=== PATIENT | female | born 1990 | race Caucasian/White ===

== ENCOUNTER 2022-10-17 10:56 | Day surgery (SDC) | payer BC ==
[2022-10-17] MEDS ORDERED: hydrALAZINE 20 MG/ML VIAL SLOW IVP PRN (12:15)
[2022-10-17 12:48] LABS: Creatinine, Urine 30.76 mg/dL (47-110); Protein, Urine Random Quant Less than 10 mg/dL (1-14)
[2022-10-17 13:12] LABS: #Basophils 0.1 10x3/uL (0.0-0.2); #Eosinphils 0.1 10x3/uL (0.0-0.5); #Monocytes 0.7 10x3/uL (0.0-1.1); #Neutrophils 7.6 10x3/uL (1.5-8.4); %Basophils 0.5 % (0.0-2.0); %Eosinophils 0.5 % (0.0-6.0); %Lymphocytes 18.8 % (18.0-47.0); %Neutrophils 72.6 % (40.0-75.0); Mean Corpuscular HGB CONC 34.9 g/dL (32.0-36.0); Mean Platelet Volume 10.6 fl (7.4-10.4); Platelet Count 209 10x3/uL (150-450); RBC Distribution Width 12.3 % (11.5-14.5); Red Blood Cell (RBC) Count 4.19 10x6/uL (3.90-5.03); White Blood Cell (WBC) Count 10.4 10x3/uL (3.5-10.5)
[2022-10-17 13:27] LABS: ALT (SGPT) 10 U/L (8-55); AST (SGOT) 15 U/L (5-34); Albumin 3.3 g/dL (3.5-5.0); Alkaline Phosphatase 67 U/L (40-110); Anion Gap 14 mmol/L (10-20); BUN (Urea Nitrogen) 8 mg/dL (7.0-18.7); Bilirubin, Total 0.4 mg/dL (0.2-1.2); Calc. Creatinine Clearance 0 mL/min (70-130); Calcium 9.5 mg/dL (7.8-10.44); Carbon Dioxide 19 mmol/L (22-29); Chloride 108 mmol/L (98-107); Estimated GFR 120; Globulin 2.9 g/dL (2.4-3.5); Glucose 72 mg/dL (70-105); Potassium 3.8 mmol/L (3.5-5.1); Protein, Total 6.2 g/dL (6.0-8.3); Sodium 137 mmol/L (136-145)
== END 2022-10-17 14:50 | disposition home or self-care (01) ==
LOC: CSHLD/OP 10:56
PROVIDERS: ATTEND Student in an Organized Health Care Education/Training Program
DX: O47.03 False labor before 37 completed weeks of gestation, third trimester (principal); O13.3 Gestational [pregnancy-induced] hypertension without significant proteinuria, third trimester; Z3A.35 35 weeks gestation of pregnancy
CPT/HCPCS: 36415; 80053; 82570; 84156; 85025; 87480; 87510; 87660; 99285

== ENCOUNTER 2022-11-12 00:32 | Inpatient (IN) | payer BC ==
[2022-11-12 00:53] VITALS: BMI 30.4
[2022-11-12] MEDS ORDERED: hydrALAZINE 20 MG/ML VIAL SLOW IVP PRN ×3 (01:18→06:15)
[2022-11-12] MEDS ORDERED: Lidocaine 1% (PF) 30 ML VIAL SC PRN (01:54)
[2022-11-12] MEDS ORDERED: Acetaminophen 500 MG TAB PO PRN (01:54)
[2022-11-12] MEDS ORDERED: Butorphanol Tartrate 1 MG/ML VIAL SLOW IVP PRN (01:54)
[2022-11-12] MEDS ORDERED: Carboprost 250 MCG/ML AMP IM PRN (01:54)
[2022-11-12] MEDS ORDERED: Promethazine HCl 25 MG/ML VIAL IM PRN ×3 (01:54→06:15)
[2022-11-12] MEDS ORDERED: Tranexamic Acid 1,000 MG in Sodium Chloride 0.9% 250 ML 250 ML IVPB PRN (01:54)
[2022-11-12] MEDS ORDERED: Ondansetron PF 4 MG/2 ML Vial IVP PRN ×3 (01:54→06:15)
[2022-11-12] MEDS ORDERED: Misoprostol 200 MCG TAB PR PRN (01:54)
[2022-11-12] MEDS ORDERED: Ibuprofen 800 MG TAB PO PRN (01:54)
[2022-11-12] MEDS ORDERED: NS w/ Oxytocin 30 units 500 ML IV SCH ×3 (02:00→06:15)
[2022-11-12] MEDS ORDERED: Lactated Ringer's 1,000 ML IV SCH (02:00)
[2022-11-12] MEDS ORDERED: Penicillin G Potassium 5 MILL.UNITS in Sodium Chloride 0.9% 100 ML IVPB SCH (02:00)
[2022-11-12] MEDS ORDERED: Penicillin G Potassium 5 MILL.UNITS VIAL ONE (02:03)
[2022-11-12 02:04] LABS: #Basophils 0.1 10x3/uL (0.0-0.2); #Eosinphils 0.3 10x3/uL (0.0-0.5); #Neutrophils 5.9 10x3/uL (1.5-8.4); %Basophils 0.6 % (0.0-2.0); %Eosinophils 2.7 % (0.0-6.0); %Lymphocytes 24.9 % (18.0-47.0); %Monocytes 10.3 % (0.0-10.0); %Neutrophils 60.7 % (40.0-75.0); Hemoglobin 13.2 g/dL (12.0-15.5); Mean Corpuscular HGB CONC 34.7 g/dL (32.0-36.0); Mean Corpuscular Hemoglobin 30.2 pg (27.0-33.0); Mean Platelet Volume 10.8 fl (7.4-10.4); Platelet Count 195 10x3/uL (150-450); RBC Distribution Width 12.3 % (11.5-14.5); Red Blood Cell (RBC) Count 4.37 10x6/uL (3.90-5.03); White Blood Cell (WBC) Count 9.8 10x3/uL (3.5-10.5)
[2022-11-12 02:08] LABS: ALT (SGPT) 14 U/L (8-55); AST (SGOT) 19 U/L (5-34); Albumin 3.3 g/dL (3.5-5.0); Alkaline Phosphatase 83 U/L (40-110); Anion Gap 14 mmol/L (10-20); BUN (Urea Nitrogen) 11 mg/dL (7.0-18.7); Bilirubin, Total 0.3 mg/dL (0.2-1.2); Calc. Creatinine Clearance 144 mL/min (70-130); Calcium 8.9 mg/dL (7.8-10.44); Carbon Dioxide 20 mmol/L (22-29); Chloride 106 mmol/L (98-107); Estimated GFR 110; Globulin 2.8 g/dL (2.4-3.5); Glucose 81 mg/dL (70-105); Potassium 3.5 mmol/L (3.5-5.1); Protein, Total 6.1 g/dL (6.0-8.3); Sodium 136 mmol/L (136-145)
[2022-11-12 02:39] LABS: HBSAg Index 0.14 S/CO (0-0.99); Hep B Surf Ag Non-Reactive S/CO (NonReactive); SARS-CoV-2 NAA Rapid Test Not Detected (NotDetected)
[2022-11-12 02:40] LABS: Syphilis Antibody Nonreactive (Nonreactive); Syphilis Antibody Index 0.03 S/CO (<1.00 Non-Reactive)
[2022-11-12] MEDS ORDERED: Naloxone HCl 0.4 mg/ml Vial IVP PRN ×2 (02:42)
[2022-11-12] MEDS ORDERED: Moisturizing Cream (Eucerin) 113 GM JAR TOP PRN (02:42)
[2022-11-12] MEDS ORDERED: diphenhydrAMINE 50 MG/ML VIAL IVP PRN (02:42)
[2022-11-12] MEDS ORDERED: ePHEDrine Sulfate 50 MG/10 ML VIAL SLOW IVP PRN (02:42)
[2022-11-12] MEDS ORDERED: Communication Order-Pharmacy FS SCH (02:45)
[2022-11-12] MEDS ORDERED: Fentanyl 2 mcg/Bupivacaine 0.1% Cassette 100 ML EPIDURAL SCH (02:45)
[2022-11-12] MEDS ORDERED: Lactated Ringer's 500 ML IV PRN (02:48)
[2022-11-12] MEDS ORDERED: Fentanyl 2 mcg/Bup 0.1% Cadd 100 ML ONE (02:58)
[2022-11-12 03:39] LABS: Creatinine, Urine 93.04 mg/dL (47-110)
[2022-11-12] MEDS ORDERED: Penicillin G 2.5 MILL.units 2.5 MILL.UNITS in Premix Bag 1 BAG IVPB SCH (06:00)
[2022-11-12] MEDS ORDERED: Boostrix 0.5 ML (Tdap) VIAL (>/=7 yrs of age) IM ONE (06:15)
[2022-11-12] MEDS ORDERED: Misoprostol 200 MCG TAB VAG PRN (06:15)
[2022-11-12] MEDS ORDERED: diphenhydrAMINE 25 MG CAP PO PRN (06:15)
[2022-11-12] MEDS ORDERED: Bisacodyl 10 MG SUPP PR PRN (06:15)
[2022-11-12] MEDS ORDERED: Milk Of Magnesia 30 ML UDCUP PO PRN (06:15)
[2022-11-12] MEDS ORDERED: Benzocaine-Menthol 82.5 ML CAN TOP PRN (06:15)
[2022-11-12] MEDS: Ibuprofen 800 MG TAB PO SCH ×3 (06:40→21:41)
[2022-11-12] MEDS: Ferrous Sulfate 325 MG TAB PO SCH ×2 (08:39→16:14)
[2022-11-12] MEDS: Docusate 100 MG CAP PO SCH ×2 (08:42→21:34)
[2022-11-12] MEDS: Prenatal Vitamin 1 TAB PO SCH (08:42)
[2022-11-12] MEDS: Acetaminophen 325 MG TAB PO PRN ×2 (13:31→19:08)
[2022-11-12] MEDS ORDERED: Bupivacaine HCl 0.5%/Epinephrine 1:200,000/PF 30 ml Vial ONE (14:00)
[2022-11-13] MEDS: Ibuprofen 800 MG TAB PO SCH ×2 (05:01→14:15)
[2022-11-13 07:26] VITALS: BP 133/72; TEMP 97.8
[2022-11-13] MEDS: Ferrous Sulfate 325 MG TAB PO SCH ×2 (08:03→14:45)
[2022-11-13] MEDS: Prenatal Vitamin 1 TAB PO SCH (08:55)
[2022-11-13] MEDS: Docusate 100 MG CAP PO SCH (08:55)
[2022-11-13] MEDS: Acetaminophen 325 MG TAB PO PRN (12:20)
== END 2022-11-13 15:15 | disposition home or self-care (01) | DRG 807 ==
LOC: CSHLD/OP 00:32 → CSHLD 01:51 → CSHPP 06:20
PROVIDERS: ADMIT Student in an Organized Health Care Education/Training Program; ATTEND Student in an Organized Health Care Education/Training Program
PROC: 10E0XZZ Delivery of Products of Conception, External Approach (ICD-10-PCS; principal; 2022-11-12)
PROC: 0UQMXZZ Repair Vulva, External Approach (ICD-10-PCS; 2022-11-12)
DX: O99.824 Streptococcus B carrier state complicating childbirth (principal); Z37.0 Single live birth; Z3A.39 39 weeks gestation of pregnancy; Z20.822 Contact with and (suspected) exposure to COVID-19; O75.89 Other specified complications of labor and delivery; O99.344 Other mental disorders complicating childbirth; F41.9 Anxiety disorder, unspecified; O69.1XX0 Labor and delivery complicated by cord around neck, with compression, not applicable or unspecified; O70.0 First degree perineal laceration during delivery; Z79.899 Other long term (current) drug therapy
CPT/HCPCS: 36415; 51702; 80053; 82570; 84156; 85025; 86780; 86850; 86900; 86901; 87340; 99285; J2540; U0002

== ENCOUNTER 2023-10-17 14:07 | Observation (INO) | payer BC ==
[~2023-10-17 14:07] MED LIST: Bupivacaine PF 0.5% 30 ML VIAL ONE; Dexamethasone 20 MG/5 ML VIAL ONE; Lidocaine 1% PF 5 ML VIAL ONE; Midazolam HCl 2 mg/2 ml Vial ONE; Ondansetron PF 4 MG/2 ML Vial ONE; PROPOFOL 20 ML ONE; Rocuronium Bromide 10 MG/ML (10ML VIAL) ONE; Sevoflurane 250 ML INH ANEST BOTTLE ONE; fentaNYL 50 mcg/mL 1 mL Vial ONE
[2023-10-17] MEDS ORDERED: CEFAZOLIN 2 GM VIAL ONE (14:35)
[2023-10-17 14:39] LABS: #Basophils 0.1 10x3/uL (0.0-0.2); #Monocytes 0.5 10x3/uL (0.0-1.1); #Neutrophils 4.1 10x3/uL (1.5-8.4); %Basophils 0.7 % (0.0-2.0); %Eosinophils 0.6 % (0.0-6.0); %Lymphocytes 31.4 % (18.0-47.0); %Monocytes 7.6 % (0.0-10.0); %Neutrophils 59.6 % (40.0-75.0); Hematocrit 39.7 % (34.9-44.5); Hemoglobin 13.7 g/dL (12.0-15.5); Mean Corpuscular HGB CONC 34.5 g/dL (32.0-36.0); Mean Corpuscular Hemoglobin 30.2 pg (27.0-33.0); Mean Corpuscular Volume 87.6 fl (81.6-98.3); Mean Platelet Volume 9.4 fl (7.4-10.4); Platelet Count 305 10x3/uL (150-450); RBC Distribution Width 11.9 % (11.5-14.5); Red Blood Cell (RBC) Count 4.53 10x6/uL (3.90-5.03); White Blood Cell (WBC) Count 6.9 10x3/uL (3.5-10.5)
[2023-10-17] MEDS ORDERED: PHENYLEPHRINE-NS 100 MCG/ML 10 ML SYRINGE ONE ×2 (15:08→15:39)
[2023-10-17] MEDS ORDERED: Glycopyrrolate 0.2 MG/ML 5 ML SYRINGE ONE (15:15)
[2023-10-17] MEDS ORDERED: Meperidine HCl/PF 25 MG (1 mL) VIAL ONE (15:52)
[2023-10-17] MEDS ORDERED: EPINEPHrine 1 MG/ML AMP ONE (16:13)
[2023-10-17] MEDS ORDERED: HYDROcodone/Acetaminophen 5/325 mg Tablet ONE (16:57)
== END 2023-10-17 17:40 | disposition home or self-care (01) ==
LOC: CSHERS 14:07 → CSHSDC/OP 14:48 → CSHTELE 17:31
PROVIDERS: ADMIT Student in an Organized Health Care Education/Training Program; ATTEND Student in an Organized Health Care Education/Training Program
PROC: 10T24ZZ Resection of Products of Conception, Ectopic, Percutaneous Endoscopic Approach (ICD-10-PCS; principal; 2023-10-17)
PROC: 0UT64ZZ Resection of Left Fallopian Tube, Percutaneous Endoscopic Approach (ICD-10-PCS; 2023-10-17)
DX: O00.90 Unspecified ectopic pregnancy without intrauterine pregnancy (principal); F41.9 Anxiety disorder, unspecified; E78.00 Pure hypercholesterolemia, unspecified; Z79.899 Other long term (current) drug therapy
CPT/HCPCS: 85025; 86850; 86900; 86901; 88305; 99285; J0171; J0665; J1100; J2175; J2250; J2405; J2704; J3010